=== PATIENT | male | born 1955 | race African-American/Black ===

== ENCOUNTER → 2017-12-04 | Outpatient (CLI) | payer BC | LOC: COL.VAS 12:40 | DX: M79.89 Other specified soft tissue disorders (principal); M79.604 Pain in right leg ==

== ENCOUNTER → 2021-03-15 | Outpatient (CLI) | payer BC ==
[2021-03-15 09:08] LABS: MAGNESIUM 1.9 mg/dL (1.6-2.3)
[2021-03-15 09:17] LABS: FASTING GLUCOSE 106 mg/dL (70-110)
[2021-03-15 09:34] LABS: 1/2 HR GLUCOSE 118 mg/dL (100-170)
[2021-03-15 10:03] LABS: 1 HR GLUCOSE 117 mg/dL (90-160)
[2021-03-15 23:37] LABS: FOLATE (FOLIC ACID) 13.1 ng/mL (2.0-20.0)
[2021-03-16 08:14] LABS: ANA SCREEN with REFLEX Negative (Negative)
[2021-03-16 09:00] LABS: LYME DISEASE ANTIBODIES Negative (Negative)
[2021-03-20 12:20] LABS: A/G RATIO (PEP) 1.08 (()); BETA GLOBULINS (PEP) 0.8 g/dL (0.7-1.2)
== END ==
LOC: COL.LAB 03-13 16:01
PROVIDERS: Psychiatry & Neurology Neurology
DX: E61.2 Magnesium deficiency (principal); E53.9 Vitamin B deficiency, unspecified; E61.1 Iron deficiency; E53.1 Pyridoxine deficiency; E53.8 Deficiency of other specified B group vitamins; G62.9 Polyneuropathy, unspecified; E55.9 Vitamin D deficiency, unspecified; R73.02 Impaired glucose tolerance (oral)